=== PATIENT | female | born 1995 | race Caucasian/White ===

== ENCOUNTER 2023-12-26 08:50 | Emergency (ER) | payer BC, SELFPAY ==
[2023-12-26 09:01] VITALS: BP 108/72; PULSE 56; RESP 18; TEMP 36.7; O2SAT 99; BMI 27.9
--- NOTE | 2023-12-26 09:32 | PC.NURSE ---
pt a&ox3, pt c/o 4-08/16 pain from abrasions, pt states she has had a tetanus within the last 10 yrs
--- NOTE | 2023-12-26 09:36 | PC.NURSE ---
pt a&ox3, pt states she has 4-6/10 pain to abrasions, pt updated on tetanus
--- NOTE | 2023-12-26 10:37 | ED.FALL ---
HPI - Fall General Chief Complaint: Fall Stated Complaint: fall Time Seen by Provider: 12/26/23 09:57 Source: patient and RN notes reviewed Mode of arrival: ambulatory Limitations: no limitations History of Present Illness ED Provider: Annette Slater PA-C [facility] Narrative: This is a 28-year-old female who presents emergency department complaints of palmar pain, and bilateral knee pain status post mechanical fall which occurred today. Patient states that she was walking her roommate's dog when suddenly the dog started to emanuel a squirrel and she fell forward, landing onto her bilateral knees and bilateral hands. She states that her chin slightly scraped the surface concrete however she denies hitting her head or loss of consciousness. She states that she has a vasovagal like response whenever she sees blood in her for has been unable to clean her wounds. She has been able to weightbear. She was not on the ground for a prolonged period of time. She denies any dizziness, blurred vision, chest pain, shortness breath, abdominal pain, nausea, vomiting or diarrhea. She denies taking any medications prior to arrival. Her last tetanus shot was in September at her primary care office. No other complaints or concerns at this time. MD complaint: fall Onset (ago): hour(s) Fall from: standing Place fall occurred: street Loss of consciousness: none Prolonged down time: no Symptoms prior to fall: none Context: tripped/slipped Severity: moderate Quality: aching Associated symptoms (after fall): denies Related Data Home Medications ?Medication ?Instructions ?Recorded ?Confirmed dextroamphetamine-amphetamine ER 1 cap PO QAM 09/17/20 09/17/20 30 mg 24hr capsule,extend release escitalopram oxalate 5 mg tablet 5 mg PO DAILY 09/17/20 09/17/20 Previous Rx's ?Medication ?Instructions ?Recorded nicotine 21 mg/24 hr daily 1 patch transdermal DAILY #28 ea 09/17/20 transdermal patch Allergies Allergy/AdvReac Type Severity Reaction Status Date / Time No Known Allergies Allergy Verified 12/26/23 09:04 Review of Systems Review of Systems: Yes all other systems are reviewed and are negative Constitutional: Constitutional: Reports as per [facility] Past Medical History Medical History (Updated 12/26/23 @ 10:39 by ÁNGEL Vasques) Tobacco consumption ADHD Annual physical exam Surgical History Hx of appendectomy Family History Family History Mother Hypothyroidism Father Colon cancer Social History Social History (Updated 09/17/20 @ 15:16 by Judy Hood MD) Household Members Other:: , used to work in grocery store Housing: Apartment Alcohol intake: never Patient Tobacco Use Status: Current everyday Tobacco user Tobacco use type: Cigarette Cigarettes Per Day: 20 Years Smoked: 16 years old e-Cigarette/Vaping Use: Former Use Advance Directives: No Advance Directives Information Provided: No Do you have a plan to hurt others: No Plan service: No Current occupational status: unemployed Physical Exam Vital Signs: Vital Signs: Last Vital Signs Temp 98.2 F 12/26/23 11:23 Pulse 54 12/26/23 11:23 Resp 16 12/26/23 11:23 BP 109/66 12/26/23 11:23 Pulse Ox 99 12/26/23 11:23 O2 Del Method Room Air 12/26/23 11:23 BMI result Body Mass Index 27.9 Const: General: cooperative, comfortable and no acute distress Orientation/consciousness: patient oriented x3 Limitations: no limitations HEENT: Other: Small superficial abrasion noted to the chin, no active bleeding Head: Yes normal to inspection, Yes normocephalic, Yes atraumatic, No Barton's sign, No hematoma, No laceration, No palpable skull fracture, No raccoon eyes and No scalp tenderness Ears: hearing grossly normal bilaterally General nose exam: Normal external nose present Face and sinus: Yes normal facial exam Mouth: Normal oral and palatal mucosa present, oropharynx normal and moist mucous membranes Throat: Yes posterior oropharynx normal Eyes: General: appearance normal, both eyes and all related structures Eyelids: Yes eyelids normal Conjunctivae: conjunctivae normal Sclerae: sclerae normal Pupils: Equal, round and reactive pupils present EOM: EOMs intact bilaterally Neck: Other: No midline C-spine tenderness on examination. Neck: Yes normal visual inspection, Yes full ROM and Yes no lymphadenopathy Lymphatic: no lymphadenopathy noted Chest: Chest palpation & inspection: normal inspection of the chest Resp: Effort & Inspection: normal respiratory effort and able to speak in complete sentences Auscultation: clear to auscultation bilaterally, no crackles, no rales, no rhonchi and no wheezes Cardio: Rate: regular rate Rhythm: regular rhythm Heart sounds: S1 normal heart sound present and S2 normal heart sound present GI: Inspection: Yes normal to inspection Skin: General skin exam: no rashes or lesions noted Trauma: no lacerations or abrasions Wounds: no wounds Neuro: General: patient oriented x3 and moves all extremities Cranial nerves: Yes Equal, round and reactive pupils present Extrem: Other: Bilateral knees, with no bony tenderness on examination, patient has a 4x3cm oval she superficial abrasion and hematoma noted to the right knee. Full range of motion of the knee without difficulty. No patellar tenderness on examination. No tenderness to the medial or lateral joint line. No surrounding erythema or warmth. Strong DP pulse. Left knee with superficial abrasion noted to the anterior surface, no patellar bony tenderness on examination. No tenderness palpation along the medial and lateral joint line. Full ROM. Distal sensation circulation intact. Strong DP pulse Right palm with 2 cm round superficial abrasion noted to the palmar surface of the right hand. Patient able to make a fist, she does have tenderness palpation along the carpal bones, however able to make a fist, with full ROM of the wrist. Strong radial pulse. Left palmar surface with 1 cm superficial abrasion noted Right lower extremity: normal to inspection Left lower extremity: normal to inspection Medications Administered Discontinued Medications Generic Name Dose Route Start Last Admin Trade Name Freq PRN Reason Stop Dose Admin Bacitracin 3 appl 12/26/23 10:35 12/26/23 10:43 Bacitracin Oint 0.9 Gm Packet TOPICAL 12/26/23 10:36 3 appl ONCE ONE Administration Protocol Medical Decision Making Medical Decision Making [facility] Narrative: This is a 28-year-old female, with a history of ADHD, depression and anxiety, who presents emergency department with complaints of bilateral knee pain, and bilateral hand pain status post mechanical fall which occurred just prior to arrival. On arrival, vital signs within normal limits. She is speaking in full sentences under no acute distress. She is alert and oriented x4, with no neurologic focal deficits on examination. She denies head strike or LOC. She is not on anticoagulants. Bilateral knees with superficial abrasion and contusions noted, she has full range of motion without any bony tenderness. She is ambulatory with steady gait. Right palmar surface with superficial abrasion noted, with tenderness palpation to the carpal bones, full range of motion of the wrist. She has no obvious bony deformity on her right hand wrist however I discussed with patient that it would be best if we obtain x-rays of her bilateral knees, and right hand however she adamantly declines as she only wants her wounds to be cleansed and for her to be discharge. I discussed the importance of keeping a close eye on her symptoms and to return or follow-up with your PCP as she may need to get x-rays of the areas to ensure she does not have any bony abnormalities. She understands and agrees with plan. She understands the risks of delaying imaging. She has the capacity to make these own decisions for her. Wounds were cleansed using saline, dressed with bacitracin and nonadherent dressing. Given strict return precautions. Patient stable for discharge. Differential Diagnosis Differential Diagnoses: The differential diagnosis associated with the presentation includes Contusion, abrasion, laceration, fracture Tests considered The following testing was considered but not selected: X-ray of the bilateral knees and hand however patient declines Prescription Management I considered prescription management with: Pain Medication and Antibiotic Discharge Plan Discharge Clinical Impression: Fall, Contusion, Abrasion of both knees Patient Disposition: Home, Self-Care Instructions: Abrasion (ED) Additional Instructions: You were seen in the emergency department after a fall today. You have superficial abrasions noted to your knees as well as your right and left hand. Please keep wounds clean and dry. You may use topical antibiotic ointment for the next week or 2. Keep a close eye on these wounds, watch for any increased redness, swelling, fevers, chills. Any of these occur, please seek emergent care. You had an updated tetanus shot in September of this year therefore we do not have to update this today. Rest, ice, and alternate between ibuprofen and Tylenol as needed for pain. I recommended you to have x-rays however you declined at this time. If you have any worsening mobility in your hand, I recommend you to have a x-ray to rule out any fractures. If any new or worsening symptoms occur including but not limited to the above symptoms, please seek emergent care. Prescriptions: No Action escitalopram oxalate 5 mg tablet 5 mg PO DAILY dextroamphetamine-amphetamine 30 mg capsule,extended release 24hr 1 cap PO QAM nicotine 21 mg/24 hr patch 24 hour 1 patch transdermal DAILY Qty: 28 3RF Interventions: ED Discharge Assessment Last Done: 12/26/23 11:23 Discharge Date/Time: 12/26/23 11:24 Print Language: [place]
[2023-12-26] MEDS: Bacitracin Oint 0.9 GM PACKET 3 APPL TOPICAL (10:43)
[2023-12-26 11:23] VITALS: BP 109/66; PULSE 54; RESP 16; TEMP 36.8; O2SAT 99
== END 2023-12-26 11:24 | disposition home or self-care (01) ==
PROVIDERS: Emergency Provider Emergency Medicine
DX: S80.01XA Contusion of right knee, initial encounter (principal); S80.212A Abrasion, left knee, initial encounter; S80.211A Abrasion, right knee, initial encounter; S00.81XA Abrasion of other part of head, initial encounter; S60.512A Abrasion of left hand, initial encounter; S60.511A Abrasion of right hand, initial encounter; W18.39XA Other fall on same level, initial encounter; Y93.K1 Activity, walking an animal; Y92.480 Sidewalk as the place of occurrence of the external cause; Y99.9 Unspecified external cause status
CPT/HCPCS: 99282; 99283